=== PATIENT | male | born 1980 | race American Indian/Alaskan Native ===

== ENCOUNTER 2018-10-29 15:31 | Emergency (ER) | payer SELFPAY ==
--- NOTE | 2018-10-29 16:01 | Emergency Department Report ---
Blank Doc - Documentation Documentation: 38 y o male presents to ED cc of pain to finger after accidently nailing his f irst three fingers together, staes pulled out nail hand xr tetnaus not up to date [facility] eval
--- NOTE | 2018-10-29 16:07 | Emergency Department Report ---
Blank Doc - Documentation Documentation: 38 y o male presents to ED with lac to finger accidental while sharpening a k nife earlier today [facility] eval Tet not up to date
[2018-10-29 16:09] VITALS: BP 126/88
--- NOTE | 2018-10-29 17:13 | XRay Report ---
PROCEDURE: XR HAND 3+V RT HISTORY: pain.... laceration to knuckle of index finger with knife FINDINGS: PA, lateral and oblique views of the right hand were acquired and demonstrate no fracture o r foreign body of the right hand. IMPRESSION: No fracture or foreign body of the right hand This document is electronically signed by Rudolph Stover MD., Oct 29 2018 05:11:29 PM ET
[2018-10-29] MEDS ORDERED: LET TOPICAL TP STA (18:03)
--- NOTE | 2018-10-29 19:10 | Emergency Department Report ---
Upper Extremity - HPI Chief Complaint: Laceration/Recheck/Suture Stated Complaint: (R) HAND INJURY Time Seen by Provider: 10/29/18 15:58 Upper Extremity: Right Index Finger ED Review of Systems ROS: Stated complaint: (R) HAND INJURY Other details as noted in HPI Constitutional: denies: chills, fever Eyes: denies: eye pain, eye discharge, vision change ENT: denies: ear pain, throat pain Respiratory: denies: cough, shortness of breath, wheezing Cardiovascular: denies: chest pain, palpitations Endocrine: no symptoms reported Gastrointestinal: denies: abdominal pain, nausea, diarrhea Genitourinary: denies: urgency, dysuria Musculoskeletal: denies: back pain, joint swelling, arthralgia Skin: denies: rash, lesions Neurological: denies: headache, weakness, paresthesias Psychiatric: denies: anxiety, depression Hematological/Lymphatic: denies: easy bleeding, easy bruising ED Past Medical Hx - Past Medical History Previous Medical History?: No - Surgical History Past Surgical History?: No - Social History Smoking Status: Current Every Day Smoker Substance Use Type: None - Medications Home Medications: Home Medications Medication Instructions Recorded Confirmed Last Taken Type Acetaminophen/Codeine [Tylenol #3] 1 tab PO Q6H PRN #20 tab 07/27/15 Unknown Rx Ibuprofen [Motrin 600 MG tab] 600 mg PO Q8H PRN #30 tablet 07/27/15 Unknown Rx Upper Extremity Exam - Exam General: Vital signs noted. No distress. Alert and acting appropriately. Head and Torso: No HEENT Abnormality, No Neck Tenderness, No Chest/Lungs Abnormality, No Abdominal Tenderness, No Back Tenderness Shoulder Exam: Yes Normal Range of Motion in Shoulder, No Shoulder Tenderness, No Clavicle Tenderness, No Shoulder Deformity, No AC Joint Tenderness Arm Exam: No Arm/Humerus Tenderness, No Arm Deformity Elbow: No Elbow Tenderness, No Normal Range of Motion in Elbow, No Elbow Deformity Forearm: No Forearm Tenderness, No Forearm Deformity, No Pain with Pronation, No Pain with Supination Wrist: Yes Normal ROM in Wrist, No Wrist Tenderness, No Wrist Deformity, No Snuffbox Tenderness, No Pain with Axial Thumb Compression Hand: Yes Hand Tenderness, Yes Normal ROM in Digit(s), No Hand Deformity, No Digit Tenderness, No Digit(s) Deformity, No Tendon Dysfunction CMS Exam: Yes Broken Skin (linear laceration to the dorsum of the second phalanges. Right hand over the PIP), Yes Normal Distal Pulses, Yes Normal Capillary Refill, Yes Normal Distal Sensation ED Course Vital Signs 10/29/18 16:08 Temperature 98.4 F Pulse Rate 63 Respiratory 16 Rate Blood Pressure 126/88 O2 Sat by Pulse 99 Oximetry - Procedure Description Procedures done: There was cleaned and prepped in aseptic fashion. Finger splint was placed. Hemostasis was achieved with cleaning and pressure. Steri- Stripped and tissue adhesive was used for wound closure with Critical care attestation.: If time is entered above; I have spent that time in minutes in the direct care of this critically ill patient, excluding procedure time. ED Disposition Clinical Impression: Finger laceration Disposition: DC-01 TO HOME OR SELFCARE Is pt being admited?: No Does the pt Need Aspirin: No Condition: Stable Instructions: Finger Laceration (ED), Skin Adhesive Care (ED) Referrals: BETH FOSTER MD [Primary Care Provider] - 3-5 Days [facility] [Provider Group] - 3-5 Days
== END 2018-10-29 19:43 | disposition home or self-care (01) ==
LOC: ED 15:31
DX: S61.210A Laceration without foreign body of right index finger without damage to nail, initial encounter (principal); F17.200 Nicotine dependence, unspecified, uncomplicated; X58.XXXA Exposure to other specified factors, initial encounter; Y93.89 Activity, other specified; Y92.89 Other specified places as the place of occurrence of the external cause; Y99.8 Other external cause status